=== PATIENT | male | born 1965 ===

== ENCOUNTER → 2023-12-22 | Outpatient (CLI) | payer BC ==
[2023-12-25 21:47] LABS: APTIMA MEDIA TYPE Urine; C. TRACHOMATIS BY TMA Negative (Negative); N. GONORRHOEAE BY TMA Negative (Negative); SPECIMEN SOURCE Urine
== END | disposition home or self-care (01) ==
LOC: LAB 16:59 → LAB SHORT 16:59
PROVIDERS: Family Medicine
DX: R35.0 Frequency of micturition (principal)
CPT/HCPCS: 87086; 87491; 87591